=== PATIENT | female | born 1975 | race Two or more races ===

== ENCOUNTER 2019-02-08 19:19 | Emergency (ER) | payer SELFPAY ==
[~2019-02-08] VITALS: Ht 162.6 cm; Wt 93.0 kg
[2019-02-08 21:30] LABS: Urine Bacteria NONE SEEN /hpf (None Seen); Urine Blood 2+ /uL (Negative); Urine Specific Gravity 1.017 (1.001-1.035); Urine WBC 537 /hpf (0 - 5); Urine WBC Clumps PRESENT /hpf (None Seen)
[2019-02-08 23:00] VITALS: BP 113/64
[2019-02-09] MEDS ORDERED: PHENAZOPYRIDINE HCL 100 MG TAB PO ONE
[2019-02-09] MEDS ORDERED: cefTRIAXone SOD 1,000 MG VL IM ONE
== END 2019-02-09 00:12 | disposition home or self-care (01) ==
LOC: ER 19:19
DX: N39.0 Urinary tract infection, site not specified (principal)
CPT/HCPCS: 81001; 96372; 99283; J0696